=== PATIENT | female | born 1955 | race Caucasian/White ===

== ENCOUNTER 2018-03-09 19:42 | Inpatient (IN) | payer MEDICAID, OTHER ==
[2018-03-09 21:54] LABS: HEMATOCRIT 39.1 % (36.0-47.0); HEMOGLOBIN 13.4 g/dl (12.0-15.5); MEAN CORPUSCULAR HEMOGLOBIN 30.5 pg (27.0-33.0); MEAN CORPUSCULAR HGB CONC 34.3 g/dl (32.0-36.5); MEAN CORPUSCULAR VOLUME 89.1 fl (80.0-96.0); PLATELET COUNT, AUTOMATED 233 10^3/uL (150-450); RED BLOOD COUNT 4.39 10^6/uL (4.00-5.40); RED CELL DISTRIBUTION WIDTH 12.2 % (11.5-14.5); WHITE BLOOD COUNT 12.4 10^3/uL (4.0-10.0)
[2018-03-09 22:15] LABS: AMPHETAMINES LEVEL URINE NEGATIVE (NEGATIVE); BARBITURATES URINE NEGATIVE (NEGATIVE); BENZODIAZEPINES URINE NEGATIVE (NEGATIVE); CANNABINOIDS URINE NEGATIVE (NEGATIVE); COCAINE METABOLITE URINE NEGATIVE (NEGATIVE); METHADONE URINE NEGATIVE (NEGATIVE); OPIATES URINE NEGATIVE (NEGATIVE); PHENCYCLIDINE URINE NEGATIVE (NEGATIVE)
[2018-03-09 22:27] LABS: ALBUMIN 4.1 GM/DL (3.2-5.2); ALBUMIN/GLOBULIN RATIO 1.14 (1.00-1.93); ALKALINE PHOSPHATASE 71 U/L (45-117); ALT/SGPT 19 U/L (12-78); ANION GAP 10 MEQ/L (8-16); AST/SGOT 17 U/L (7-37); BILIRUBIN,DIRECT 0.2 MG/DL (0.0-0.2); BILIRUBIN,TOTAL 1.2 MG/DL (0.2-1.0); BLOOD UREA NITROGEN 18 MG/DL (7-18); CALCIUM LEVEL 8.5 MG/DL (8.8-10.2); CARBON DIOXIDE LEVEL 25 MEQ/L (21-32); CHLORIDE LEVEL 106 MEQ/L (98-107); CREATININE FOR GFR 0.87 MG/DL (0.55-1.30); ETHYL ALCOHOL (ETHANOL) < 0.003 % (0.000-0.010); GLOMERULAR FILTRATION RATE > 60.0 (>45); GLUCOSE, FASTING 124 MG/DL (70-100); POTASSIUM SERUM 3.8 MEQ/L (3.5-5.1); SALICYLATE LEVEL < 1.7 MG/DL (5.0-30.0); SODIUM LEVEL 141 MEQ/L (136-145); TOTAL PROTEIN 7.7 GM/DL (6.4-8.2)
[2018-03-09 22:32] LABS: ACETAMINOPHEN LEVEL < 2.0 UG/ML (10.0-30.0)
[2018-03-09] MEDS ORDERED: MOM 30ML SUSPENSION UDC PO (23:45)
[2018-03-09] MEDS ORDERED: ACETAMINOPHEN TAB 650MG DOSE (2X325MG) PO (23:45)
[2018-03-09] MEDS ORDERED: MAALOX 30 ML SUSP *UDC PO (23:45)
[2018-03-09] MEDS ORDERED: OLANZapine 5 MG TAB PO (23:45)
[2018-03-10] MEDS: LISINOPRIL 20 MG TAB PO ×3 (01:15→21:00)
[2018-03-10] MEDS ORDERED: amLODIPine 10 MG TAB PO (01:15)
[2018-03-10] MEDS: CHLORTHALIDONE 25 MG TAB PO ×2 (01:15→09:15)
[2018-03-10] MEDS: LORazepam 1 MG TAB PO (02:01)
[2018-03-10] MEDS: traZODone 50 MG TAB PO (21:47)
[2018-03-11] MEDS: LISINOPRIL 20 MG TAB PO ×2 (08:38→21:56)
[2018-03-11] MEDS: CHLORTHALIDONE 25 MG TAB PO (08:38)
[2018-03-11] MEDS: traZODone 50 MG TAB PO (21:56)
[2018-03-12] MEDS: CHLORTHALIDONE 25 MG TAB PO (09:12)
[2018-03-12] MEDS: LISINOPRIL 20 MG TAB PO ×2 (09:12→21:14)
[2018-03-12] MEDS: traZODone 50 MG TAB PO (21:14)
[2018-03-13] MEDS: LISINOPRIL 20 MG TAB PO ×2 (09:53→21:35)
[2018-03-13] MEDS: CHLORTHALIDONE 25 MG TAB PO (09:53)
[2018-03-14] MEDS: CHLORTHALIDONE 25 MG TAB PO (08:32)
[2018-03-14] MEDS: LISINOPRIL 20 MG TAB PO ×2 (08:32→21:07)
[2018-03-14] MEDS: traZODone 50 MG TAB PO (21:07)
[2018-03-15] MEDS: LISINOPRIL 20 MG TAB PO ×2 (08:32→21:32)
[2018-03-15] MEDS: CHLORTHALIDONE 25 MG TAB PO (08:32)
[2018-03-15] MEDS: traZODone 50 MG TAB PO (21:30)
[2018-03-16] MEDS: LISINOPRIL 20 MG TAB PO ×2 (08:06→21:22)
[2018-03-16] MEDS: CHLORTHALIDONE 25 MG TAB PO (08:06)
[2018-03-16] MEDS: traZODone 50 MG TAB PO (21:22)
[2018-03-17] MEDS: LISINOPRIL 20 MG TAB PO ×2 (08:38→21:32)
[2018-03-17] MEDS: CHLORTHALIDONE 25 MG TAB PO (08:38)
[2018-03-17] MEDS: traZODone 50 MG TAB PO (21:31)
[2018-03-18] MEDS: LISINOPRIL 20 MG TAB PO ×2 (08:36→21:24)
[2018-03-18] MEDS: CHLORTHALIDONE 25 MG TAB PO (08:36)
[2018-03-19] MEDS: LISINOPRIL 20 MG TAB PO (09:26)
[2018-03-19] MEDS: CHLORTHALIDONE 25 MG TAB PO (09:26)
== END 2018-03-19 12:30 | disposition home or self-care (01) | DRG 885 ==
LOC: M PSY 03-10 00:20 → M ED 19:42 → M ED INP 23:33
DX: F25.0 Schizoaffective disorder, bipolar type (principal); J45.909 Unspecified asthma, uncomplicated; Z59.0 Homelessness; I10 Essential (primary) hypertension

== ENCOUNTER 2018-03-22 12:38 | Emergency (ER) | payer MEDICAID | END 2018-03-22 15:14 | disposition home or self-care (01) | LOC: M ED 12:38 | DX: S90.821A Blister (nonthermal), right foot, initial encounter (principal); S90.822A Blister (nonthermal), left foot, initial encounter; K21.9 Gastro-esophageal reflux disease without esophagitis; F99 Mental disorder, not otherwise specified; Z79.899 Other long term (current) drug therapy | CPT/HCPCS: 99283 ==

== ENCOUNTER 2018-03-22 21:34 | Inpatient (IN) | payer MEDICAID ==
[2018-03-22] MEDS: LISINOPRIL 10 MG TAB PO (21:00)
[2018-03-22 23:28] LABS: HEMATOCRIT 38.2 % (36.0-47.0); HEMOGLOBIN 13.5 g/dl (12.0-15.5); MEAN CORPUSCULAR HGB CONC 35.3 g/dl (32.0-36.5); MEAN CORPUSCULAR VOLUME 84.9 fl (80.0-96.0); PLATELET COUNT, AUTOMATED 257 10^3/uL (150-450); RED CELL DISTRIBUTION WIDTH 11.9 % (11.5-14.5); WHITE BLOOD COUNT 10.8 10^3/uL (4.0-10.0)
[2018-03-22 23:35] LABS: AMPHETAMINES LEVEL URINE NEGATIVE (NEGATIVE); BARBITURATES URINE NEGATIVE (NEGATIVE); BENZODIAZEPINES URINE NEGATIVE (NEGATIVE); CANNABINOIDS URINE NEGATIVE (NEGATIVE); COCAINE METABOLITE URINE NEGATIVE (NEGATIVE); METHADONE URINE NEGATIVE (NEGATIVE); OPIATES URINE NEGATIVE (NEGATIVE); PHENCYCLIDINE URINE NEGATIVE (NEGATIVE)
[2018-03-23 00:05] LABS: ACETAMINOPHEN LEVEL < 2.0 UG/ML (10.0-30.0); ALBUMIN 4.1 GM/DL (3.2-5.2); ALBUMIN/GLOBULIN RATIO 1.17 (1.00-1.93); ALKALINE PHOSPHATASE 77 U/L (45-117); ALT/SGPT 17 U/L (12-78); ANION GAP 10 MEQ/L (8-16); AST/SGOT 24 U/L (7-37); BILIRUBIN,DIRECT 0.2 MG/DL (0.0-0.2); BILIRUBIN,TOTAL 1.1 MG/DL (0.2-1.0); BLOOD UREA NITROGEN 14 MG/DL (7-18); CALCIUM LEVEL 8.6 MG/DL (8.8-10.2); CARBON DIOXIDE LEVEL 30 MEQ/L (21-32); CHLORIDE LEVEL 94 MEQ/L (98-107); CREATININE FOR GFR 0.84 MG/DL (0.55-1.30); ETHYL ALCOHOL (ETHANOL) < 0.003 % (0.000-0.010); GLOMERULAR FILTRATION RATE > 60.0 (>45); GLUCOSE, FASTING 117 MG/DL (70-100); POTASSIUM SERUM 3.2 MEQ/L (3.5-5.1); SALICYLATE LEVEL < 1.7 MG/DL (5.0-30.0); SODIUM LEVEL 134 MEQ/L (136-145); TOTAL PROTEIN 7.6 GM/DL (6.4-8.2)
[2018-03-23] MEDS: POTASSIUM CHLORIDE 10 MEQ SR TABLET PO (00:30)
[2018-03-23] MEDS ORDERED: OLANZapine ORAL DISINTEGRATING TAB 5MG PO (01:45)
[2018-03-23] MEDS ORDERED: ACETAMINOPHEN TAB 650MG DOSE (2X325MG) PO (01:45)
[2018-03-23] MEDS ORDERED: MAALOX 30 ML SUSP *UDC PO (01:45)
[2018-03-23] MEDS ORDERED: MOM 30ML SUSPENSION UDC PO (01:45)
[2018-03-23] MEDS ORDERED: PILL CRUSHER/CUTTER 1 EACH XX (02:00)
[2018-03-23] MEDS: LISINOPRIL 10 MG TAB PO (08:40)
[2018-03-23] MEDS: amLODIPine 5 MG TAB PO (08:41)
[2018-03-23 13:07] LABS: ANION GAP 8 MEQ/L (8-16); BLOOD UREA NITROGEN 14 MG/DL (7-18); CARBON DIOXIDE LEVEL 29 MEQ/L (21-32); CHLORIDE LEVEL 93 MEQ/L (98-107); GLOMERULAR FILTRATION RATE > 60.0 (>45); GLUCOSE, FASTING 109 MG/DL (70-100); POTASSIUM SERUM 3.9 MEQ/L (3.5-5.1); SODIUM LEVEL 130 MEQ/L (136-145)
[2018-03-23 13:10] LABS: ESTIMATED AVERAGE GLUCOSE 114 MG/DL (60-110); HEMOGLOBIN A1c 5.6 %
[2018-03-23] MEDS: ARIPiprazole 10 MG TAB PO (21:23)
[2018-03-23] MEDS: LISINOPRIL 20 MG TAB PO (21:23)
[2018-03-23] MEDS: traZODone 50 MG TAB PO (21:23)
[2018-03-24] MEDS: LISINOPRIL 20 MG TAB PO ×2 (08:37→22:08)
[2018-03-24] MEDS: amLODIPine 5 MG TAB PO (08:37)
[2018-03-24 08:58] LABS: HEMATOCRIT 36.5 % (36.0-47.0); HEMOGLOBIN 12.7 g/dl (12.0-15.5); MEAN CORPUSCULAR HEMOGLOBIN 30.5 pg (27.0-33.0); MEAN CORPUSCULAR HGB CONC 34.8 g/dl (32.0-36.5); MEAN CORPUSCULAR VOLUME 87.7 fl (80.0-96.0); PLATELET COUNT, AUTOMATED 271 10^3/uL (150-450); RED BLOOD COUNT 4.16 10^6/uL (4.00-5.40); RED CELL DISTRIBUTION WIDTH 11.9 % (11.5-14.5); WHITE BLOOD COUNT 8.2 10^3/uL (4.0-10.0)
[2018-03-24 09:19] LABS: ANION GAP 9 MEQ/L (8-16); BLOOD UREA NITROGEN 12 MG/DL (7-18); CALCIUM LEVEL 9.5 MG/DL (8.8-10.2); CARBON DIOXIDE LEVEL 29 MEQ/L (21-32); CHLORIDE LEVEL 99 MEQ/L (98-107); CREATININE FOR GFR 1.12 MG/DL (0.55-1.30); GLOMERULAR FILTRATION RATE 52.1 (>45); GLUCOSE, FASTING 132 MG/DL (70-100); POTASSIUM SERUM 3.9 MEQ/L (3.5-5.1); SODIUM LEVEL 137 MEQ/L (136-145)
[2018-03-24 11:03] LABS: KETONE, URINE AUTO RFX NEGATIVE (NEGATIVE); MUCUS, URINE RFX SMALL (NEGATIVE); NITRITE, URINE AUTO RFX NEGATIVE (NEGATIVE); RBC, URINE AUTO RFX 3 /HPF (0-3); SPECIFIC GRAVITY UR AUTO RFX 1.004 (1.002-1.035); SQUAM EPITHELIAL CELL UR AURFX 1 /HPF (0-6); WBC, URINE AUTO RFX 2 /HPF (0-3)
[2018-03-24 11:04] LABS: LEUKOCYTE ESTERASE UR AUTO RFX 2+ (NEGATIVE)
[2018-03-24] MEDS: ARIPiprazole 10 MG TAB PO (22:08)
[2018-03-25] MEDS: amLODIPine 5 MG TAB PO (08:50)
[2018-03-25] MEDS: LISINOPRIL 20 MG TAB PO ×2 (08:50→21:34)
[2018-03-25] MEDS: ARIPiprazole 10 MG TAB PO (21:34)
[2018-03-25] MEDS: traZODone 50 MG TAB PO (21:34)
[2018-03-26] MEDS: LISINOPRIL 20 MG TAB PO ×2 (08:36→20:53)
[2018-03-26] MEDS: amLODIPine 5 MG TAB PO (08:36)
[2018-03-26] MEDS: traZODone 50 MG TAB PO (20:53)
[2018-03-26] MEDS: ARIPiprazole 10 MG TAB PO (20:53)
[2018-03-27] MEDS: amLODIPine 5 MG TAB PO (08:15)
[2018-03-27] MEDS: LISINOPRIL 20 MG TAB PO ×2 (08:16→20:59)
[2018-03-27] MEDS: ARIPiprazole 10 MG TAB PO (20:59)
[2018-03-27] MEDS: traZODone 50 MG TAB PO (20:59)
[2018-03-28] MEDS: LISINOPRIL 20 MG TAB PO ×2 (08:41→20:58)
[2018-03-28] MEDS: amLODIPine 5 MG TAB PO (08:41)
[2018-03-28] MEDS: **PENDING PPD ENTRY XX (09:00)
[2018-03-28] MEDS: TUBERCULIN PPD 5 UNITS/0.1 ML ID (10:00)
[2018-03-28] MEDS: ARIPiprazole 10 MG TAB PO (20:58)
[2018-03-29] MEDS: amLODIPine 5 MG TAB PO (08:45)
[2018-03-29] MEDS: **PENDING PPD ENTRY XX (08:45)
[2018-03-29] MEDS: LISINOPRIL 20 MG TAB PO ×2 (08:45→21:13)
[2018-03-29] MEDS ORDERED: TUBERCULIN PPD 5 UNITS/0.1 ML ID (09:00)
[2018-03-29] MEDS: ARIPiprazole 10 MG TAB PO (21:12)
[2018-03-30] MEDS: LISINOPRIL 20 MG TAB PO ×2 (08:32→20:59)
[2018-03-30] MEDS: amLODIPine 5 MG TAB PO (08:32)
[2018-03-30] MEDS: **PENDING PPD ENTRY XX (08:33)
[2018-03-30] MEDS ORDERED: PPD DOCUMENTATION ENTRY MISC XX (10:00)
[2018-03-30] MEDS: ARIPiprazole 10 MG TAB PO (20:59)
[2018-03-30] MEDS: traZODone 50 MG TAB PO (20:59)
[2018-03-31] MEDS: amLODIPine 5 MG TAB PO (08:33)
[2018-03-31] MEDS: **PENDING PPD ENTRY XX (08:33)
[2018-03-31] MEDS: LISINOPRIL 20 MG TAB PO ×2 (08:33→20:57)
[2018-03-31] MEDS ORDERED: PPD DOCUMENTATION ENTRY MISC XX (10:00)
[2018-03-31] MEDS: traZODone 50 MG TAB PO (20:57)
[2018-03-31] MEDS: ARIPiprazole 10 MG TAB PO (20:57)
[2018-04-01] MEDS: amLODIPine 5 MG TAB PO (08:25)
[2018-04-01] MEDS: LISINOPRIL 20 MG TAB PO ×2 (08:25→20:28)
[2018-04-01] MEDS: **PENDING PPD ENTRY XX (09:00)
[2018-04-01] MEDS: traZODone 50 MG TAB PO (20:28)
[2018-04-01] MEDS: ARIPiprazole 10 MG TAB PO (20:28)
[2018-04-02] MEDS: amLODIPine 5 MG TAB PO (08:23)
[2018-04-02] MEDS: LISINOPRIL 20 MG TAB PO ×2 (08:24→21:02)
[2018-04-02] MEDS: **PENDING PPD ENTRY XX (08:24)
[2018-04-02] MEDS: traZODone 50 MG TAB PO (21:02)
[2018-04-02] MEDS: ARIPiprazole 10 MG TAB PO (21:02)
[2018-04-03] MEDS: LISINOPRIL 20 MG TAB PO ×2 (08:22→20:46)
[2018-04-03] MEDS: amLODIPine 5 MG TAB PO (08:22)
[2018-04-03] MEDS: **PENDING PPD ENTRY XX (08:23)
[2018-04-03] MEDS: ARIPiprazole 15 MG TAB (AbiLIFY) PO (20:46)
[2018-04-04] MEDS: **PENDING PPD ENTRY XX (08:47)
[2018-04-04] MEDS: LISINOPRIL 20 MG TAB PO ×2 (08:51→20:38)
[2018-04-04] MEDS: amLODIPine 5 MG TAB PO (08:51)
[2018-04-04] MEDS: traZODone 50 MG TAB PO (20:38)
[2018-04-04] MEDS: ARIPiprazole 15 MG TAB (AbiLIFY) PO (20:38)
[2018-04-05] MEDS: LISINOPRIL 20 MG TAB PO ×2 (08:15→20:46)
[2018-04-05] MEDS: amLODIPine 5 MG TAB PO (08:16)
[2018-04-05] MEDS: **PENDING PPD ENTRY XX (09:00)
[2018-04-05] MEDS: ARIPiprazole 15 MG TAB (AbiLIFY) PO (20:46)
[2018-04-05] MEDS: traZODone 50 MG TAB PO (20:46)
[2018-04-06] MEDS: LISINOPRIL 20 MG TAB PO (08:23)
[2018-04-06] MEDS: amLODIPine 5 MG TAB PO (08:23)
[2018-04-06] MEDS: **PENDING PPD ENTRY XX (08:24)
== END 2018-04-06 10:45 | disposition home or self-care (01) | DRG 885 ==
LOC: M ED 21:34 → M PSY 03-25 15:45 → M ED INP 03-23 00:35 → M PSY 03-23 01:58
DX: F25.0 Schizoaffective disorder, bipolar type (principal); Z68.41 Body mass index [BMI] 40.0-44.9, adult; E87.1 Hypo-osmolality and hyponatremia; F22 Delusional disorders; Z79.899 Other long term (current) drug therapy; G47.00 Insomnia, unspecified; I10 Essential (primary) hypertension; E66.9 Obesity, unspecified; M54.5 Low back pain; Z90.710 Acquired absence of both cervix and uterus; D72.829 Elevated white blood cell count, unspecified; E87.6 Hypokalemia; S90.821A Blister (nonthermal), right foot, initial encounter; S90.822A Blister (nonthermal), left foot, initial encounter; X19.XXXA Contact with other heat and hot substances, initial encounter; Y92.488 Other paved roadways as the place of occurrence of the external cause; Y93.01 Activity, walking, marching and hiking

== ENCOUNTER 2018-05-03 14:25 | Emergency (ER) | payer OTHER, MEDICAID ==
[2018-05-03] MEDS: NYSTATIN 100,000 UNITS/GM TOPICAL PWD 15 GM TOP (19:05)
== END 2018-05-03 19:11 | disposition home or self-care (01) ==
LOC: M ED 14:25
DX: T76.11XA Adult physical abuse, suspected, initial encounter (principal); Y92.89 Other specified places as the place of occurrence of the external cause; B37.2 Candidiasis of skin and nail; I10 Essential (primary) hypertension; F20.9 Schizophrenia, unspecified; F33.9 Major depressive disorder, recurrent, unspecified; F41.9 Anxiety disorder, unspecified; K21.9 Gastro-esophageal reflux disease without esophagitis; Z79.899 Other long term (current) drug therapy
CPT/HCPCS: 99284